=== PATIENT | male | born 1940 | race Caucasian/White ===

== ENCOUNTER 2020-06-13 11:15 | Outpatient (CLI) | payer BC, SELFPAY ==
--- NOTE | ~2020-06-13 | XR_ITS ---
XR elbow RT min 3V DATE: 06/13/2020 11:44 INDICATION: Right elbow pain TECHNIQUE: 4 views COMPARISON: None FINDINGS: There is a prominent dorsal olecranon spur. There is osteoarthritic change at the elbow joint. No recent fracture or dislocation or joint effusion. No periosteal reaction or bone destruction. IMPRESSION: Osteoarthritis of the right elbow joint Prominent dorsal olecranon process spur Reviewed, dictated and finalized at location A. [employer]
--- NOTE | ~2020-06-13 | XR_ITS ---
XR hip BI wo pelvis DATE: 06/13/2020 11:44 INDICATION: Hip joint laxity TECHNIQUE: AP and lateral views of each hip COMPARISON: None FINDINGS: Incidentally noted are multiple radiopaque prostate seeds. There is mild osteoarthritis at both hip joints. No fracture, dislocation, avascular necrosis or bone destruction of either hip is evident. Alignment is intact at the pubic symphysis and sacroiliac joints. Prominent degenerative disc disease at L5-S1. 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 [employer]
--- NOTE | ~2020-06-13 | XR_ITS ---
XR shoulder RT min 2V DATE: 06/13/2020 11:44 INDICATION: Right shoulder and elbow pain TECHNIQUE: 3 views of right shoulder COMPARISON: None FINDINGS: Several chronic calcifications measuring up to approximately 4 mm are noted at the superior aspect of the right acromioclavicular joint. There is diffuse osteopenia. There is mild osteoarthritic spurring as well as some joint space narrowing at the glenohumeral joint consistent with osteoarthritis. Diffuse osteopenia No fracture, dislocation, periosteal reaction or bone destruction or abnormal right shoulder soft tis lisa calcification. 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
== END 2020-06-13 11:16 | disposition home or self-care (01) ==
PROVIDERS: PCP Internal Medicine; Visit Provider Internal Medicine
DX: M16.0 Bilateral primary osteoarthritis of hip (principal); M85.821 Other specified disorders of bone density and structure, right upper arm; M85.811 Other specified disorders of bone density and structure, right shoulder; M19.011 Primary osteoarthritis, right shoulder
CPT/HCPCS: 73030; 73080; 73521